=== PATIENT | male | born 1965 | race Caucasian/White ===

== ENCOUNTER 2019-01-03 22:43 | Emergency (ER) | payer OTHER ==
[2019-01-04] MEDS ORDERED: ONDANSETRON 4 MG/2 ML VIAL IVP STA ×2 (00:01→01:27)
[2019-01-04] MEDS ORDERED: HYDROmorphone 1 MG/ML 1 ML SYRINGE IVP STA ×2 (00:02→00:36)
[2019-01-04] MEDS ORDERED: LIDOCAINE 1%-EPI 1:100,000 20 ML VIAL SQ STA (00:27)
[2019-01-04] MEDS ORDERED: LIDOCAINE 1% INJ 10MG/ML (20 ML MDV) SQ ONE (00:27)
--- NOTE | 2019-01-04 02:41 | ED ---
Wound/Laceration HPI - General Chief Complaint: Wound/Laceration Stated Complaint: Lft Leg Laceration Source: patient Limitations: no limitations - History of Present Illness Initial Comments: The patient is a 53-year-old male who presents to the emergency department with a laceration noted to his left lower extremity. The patient states that he was stepping around a porch when he slipped off and skinned the anterior part of his simpson on the concrete. The patient sustained a v-shaped laceration down to the bone. There was some persistent oozing of blood. The patient did wrap his leg in paper towel and came immediately into the emergency room. He denies any numbness or tingling into his toes. Continues to have full normal range of motion. Patient has good pulses. The patient is unsure of his last tetanus exam however is refusing one at this time. He did not take any medications for his pain. Denies any additional injuries to include head trauma. There are no alleviating, precipitating or modifying factors - Related Data Home Medications Medication Instructions Recorded Confirmed Aspirin EC [Ecotrin Low Dose] 81 mg PO HS 01/03/19 01/03/19 Atorvastatin [Lipitor] 20 mg PO HS 01/03/19 01/03/19 Cholecalciferol (Vitamin D3) 5,000 unit PO HS 01/03/19 01/03/19 [Vitamin D3] Previous Rx's Medication Instructions Recorded Amoxicillin/Potassium Clav 1 tab PO Q12HR #20 tab 01/04/19 [Augmentin 875-125 Tablet] HYDROcodone/APAP 7.5-325MG [[place] 1 tab PO Q6HR PRN #12 tab 01/04/19 7.5-325] Allergies Allergy/AdvReac Type Severity Reaction Status Date / Time levofloxacin [From Levaquin] Allergy Rash/Hives Verified 01/03/19 23:11 morphine AdvReac Nausea & Verified 01/03/19 23:11 Vomiting & Diarrhea Review of Systems ROS Statement: Those systems with pertinent positive or pertinent negative responses have been documented in the HPI. ROS Other: All systems not noted in ROS Statement are negative. Past Medical History Past Medical History: Hyperlipidemia History of Any Multi-Drug Resistant Organisms: None Reported Past Surgical History: Orthopedic Surgery Additional Past Surgical History / Comment(s): c-spine sx Past Psychological History: No Psychological Hx Reported Smoking Status: Former smoker Past Alcohol Use History: Occasional Past Drug Use History: None Reported General Exam Limitations: no limitations General appearance: alert, in no apparent distress Head exam: Present: atraumatic, normocephalic Extremities exam: Present: other (2+ DP and PT pulses. No pain with ROM testing at the ankle and knee. compartments are soft. Patient has intact sensation over the medial, lateral and dorsal foot. Intact foot dorsiflexion and plantar flexion. <3 second cap refill. ) Neurological exam: Present: alert, oriented X3 Skin exam: Present: other (laceration right simpson measuring 18 x 12 cm which extends deep with exposed tibia. No pulsatile bleeding.) Course Vital Signs 01/03/19 01/04/19 22:50 03:34 Temperature 98.1 F 97.5 F L Pulse Rate 76 66 Respiratory 20 14 Rate Blood Pressure 144/99 125/78 O2 Sat by Pulse 96 100 Oximetry Procedures - Laceration Laceration #1 Consent Obtained: verbal consent Indication: laceration Site: lower extremity Size (cm): 30 (cm) Description: flap Depth: involves muscle layer, [id number] Anesthetic Used: lidocaine 1%, with epi, without epi Anesthesia Technique: local infiltration Amount (mls): 10 (mL total (5 mL with epi, 5 ml without epi)) Pre-repair: wound explored, irrigated extensively, wound margins revised Type of Sutures: nylon Size of Sutures: 4-0 Number of Sutures: 52 Technique: simple, interrupted Patient Tolerated Procedure: well, no complications Additional Comments: Laceration was v-shaped, down to the tibia. fascia over the bone require 4, 4-0 vicryl sutures. Subcutaneous tissue required 14 vicryl 4-0 sutures. Skin surface required 34, 4-0 nylon sutures Medical Decision Making - Medical Decision Making Upon arrival the patient is placed into room 27. I did perform a initial surveillance of the wound which reveals a large laceration. Because of this the patient is moved into trauma bay 2. I did recommend an x-ray of the patient's right tib-fib. The patient refused stating he can get an x-ray at work. I did strongly recommend re-x-ray however the patient continued to decline. I also offered him a tetanus shot for which she declined. I did recommend a CBC to examine the amount of blood loss however the patient refused this as well. I recommended orthopedic consultation and wash-out/repair in the OR. The patient refused and requested that I close his wound. He is made aware of the potential risks of refusal (retained foreign body, open fracture, infection, loss of limb, injury to deep structure) and he continues to deny the workup. I did recommend IV establishment in order to provide pain and nausea medications. The patient did agree to this. He was given 1 mg of Dilaudid and 4 mg of morphine. I did provide the patient with 1 gram of Ancef. The wound was copiously irrigated with 7, 500 mL bottles of normal saline. Betadine was also used. The wound was meticulously explored and demonstrated deep structure involvement. The wound was down to the tibia. We did perform a 3 layer closure using 52 sutures. The skin was approximated well. The patient's must absolutely without fail follow- up with orthopedics on Sunday. The patient does see Dr. Mendez. The patient's must also have continuous wound evaluations by his primary care physician. I will prescribe him Augmentin and [place]. If there is any concern for increasing redness, pustular drainage, pain or dehiscence of the wound that he return to [facility] emergency room. The patient was in agreement. He was then discharged home in stable condition Disposition Clinical Impression: Laceration Disposition: HOME SELF-CARE Condition: Serious Instructions (If sedation given, give patient instructions): Care For Your Stitches (ED) Additional Instructions: You need to follow-up with the orthopedic doctor on Sunday. Return to the emergency room if you develop any redness, intense swelling, worsening pain, pustular drainage or inability to ambulate. Prescriptions: Amoxicillin/Potassium Clav [Augmentin 875-125 Tablet] 1 tab PO Q12HR #20 tab HYDROcodone/APAP 7.5-325MG [[place] 7.5-325] 1 tab PO Q6HR PRN #12 tab PRN Reason: Pain Is patient prescribed a controlled substance at d/c from ED?: No Referrals: Prasanna Staples DO [Primary Care Provider] - 1-2 days Jean Mendez DO [REFERRING] - 1-2 days Time of Disposition: 02:41
[2019-01-04 03:38] VITALS: BP 125/78; PULSE 66; RESP 14; TEMP 97.5
== END 2019-01-04 03:35 | disposition home or self-care (01) ==
LOC: EC 22:43
DX: S81.812A Laceration without foreign body, left lower leg, initial encounter (principal); E78.5 Hyperlipidemia, unspecified; Z88.1 Allergy status to other antibiotic agents; Z88.5 Allergy status to narcotic agent; Z79.899 Other long term (current) drug therapy; Z79.82 Long term (current) use of aspirin; Z53.20 Procedure and treatment not carried out because of patient's decision for unspecified reasons; Z87.891 Personal history of nicotine dependence; W01.0XXA Fall on same level from slipping, tripping and stumbling without subsequent striking against object, initial encounter; Y93.A3 Activity, aerobic and step exercise; Y92.009 Unspecified place in unspecified non-institutional (private) residence as the place of occurrence of the external cause
CPT/HCPCS: 12036; 99283; 96365; 96366 ×2; 96375 ×2; 96376 ×2; J2405; J0690; J2001; J1170